=== PATIENT | male | born 1945 | race Caucasian/White ===

== ENCOUNTER 2019-02-17 09:36 | Day surgery (SDC) | payer MEDICARE, BC ==
[2019-02-17] MEDS ORDERED: Propofol 200 MG/20 ML SDV ONE ×3 (09:38→11:25)
[2019-02-17] MEDS ORDERED: Lactated Ringers 1,000 ML IV SCH (09:45)
[2019-02-17] MEDS ORDERED: Sodium Chloride 0.9% 10 ML Syringe FLUSH PRN (09:45)
--- NOTE | 2019-02-17 10:31 | PCM.PN ---
- General Info Date of Service: 02/17/19 - Review of Systems Systems Review Comment:: 73-year-old male here for colonoscopy. He has a history of colon polyps and is here for surveillance colonoscopy. His last colonoscopy was 3 years ago. He is medically stable to proceed today. There is been no significant recent change in his bowel pattern. His recent history and physical is reviewed and no significant changes are noted. I discussed the proposed colonoscopy with the patient. Risks such as but not limited to bleeding and GI injury reviewed. He agrees to proceed. - Patient Data Vitals - Most Recent: Last Vital Signs Temp 98.2 F 02/17/19 09:56 Pulse 67 02/17/19 09:56 Resp 16 02/17/19 09:56 BP 131/81 02/17/19 09:56 Pulse Ox 98 02/17/19 09:56 Weight - Most Recent: 120.202 kg Med Orders - Current: Current Medications Lactated Ringer's (Ringers, Lactated) 1,000 mls @ 125 mls/hr IV ASDIRECTED ISATU Last Admin: 02/17/19 09:54 Dose: 125 mls/hr Sodium Chloride (Saline Flush) 10 ml FLUSH ASDIRECTED PRN PRN Reason: Keep Vein Open Discontinued Medications Propofol (Diprivan 20 Ml) Confirm Administered Dose 400 mg .ROUTE .STK-MED ONE Stop: 02/17/19 09:39 - Problem List Review Problem List Initiated/Reviewed/Updated: Yes - My Orders Last 24 Hours: My Active Orders 02/17/19 09:45 Patient Status [ADT] Routine Peripheral IV Care [RC] . DIRECTED Verify Patient Consent Obtain [RC] ASDIRECTED Lactated Ringers [Ringers, Lactated] 1,000 ml IV ASDIRECTED Sodium Chloride 0.9% [Saline Flush] 10 ml FLUSH ASDIRECTED PRN Peripheral IV Insertion Adult [OM.PC] Routine - Assessment Assessment:: history of colon polyps - Plan Plan:: colonoscopy
--- NOTE | 2019-02-17 11:24 | PCM.OPNOTE ---
- General Post-Op/Procedure Note Date of Surgery/Procedure: 02/17/19 Operative Procedure(s): Colonoscopy with Polypectomy Findings: Multiple colon polyps Pre Op Diagnosis: history of colon polyps Post-Op Diagnosis: Colon Polyps Anesthesia Technique: MAC Primary Surgeon: Darion Levi Pathology: Colon Polyps Output, Urine Amount: 0 EBL in mLs: 0 Complications: None Condition: Good
--- NOTE | 2019-02-17 15:12 | OR ---
Date of Procedure: 02/17/2019 PREOPERATIVE DIAGNOSIS: History of colon polyps. POSTOPERATIVE DIAGNOSIS: Multiple colon polyps and hemorrhoids. OPERATIONS PERFORMED: Colonoscopy with polypectomy. INDICATIONS FOR SURGERY: This 73-year-old male has a known history of colon polyps and comes today for surveillance colonoscopy. FINDINGS: Multiple polyps were seen on today's exam. These range in size from 5 mm to 12 mm. They are all sessile in configuration. They are located in the splenic flexure, in the distal transverse colon, the proximal transverse colon, the hepatic flexure, and the ascending colon. The patient also has moderate degree of external hemorrhoids. PROCEDURE IN DETAIL: The patient was taken to the operating room. He was given intravenous sedation and with him in the left lateral decubitus position, digital rectal exam was performed showing no rectal masses. The Olympus colonoscope was inserted into the rectum. Retroflexed examination of the rectal canal was performed. The scope was then carefully advanced under direct visualization through the entire length of the colon until the cecum was reached. The cecum was able to be safely accessed and its identity is confirmed by viewing the normal internal cecal anatomy including the appendiceal orifice and ileocecal valve. The scope was then slowly withdrawn sequentially re- examining the colonic segments until the entire colon and rectum had been fully examined. During insertion and withdrawal of the scope, the above-described polyps were identified. As they are identified, they are in turn removed with cautery snare and are each retrieved. The polypectomy sites appeared to be clean after the procedure was completed. No sign of bleeding or any other complication was noted. The scope was removed, and the patient was taken from the operating room in satisfactory condition. ESTIMATED BLOOD LOSS: 0. COMPLICATIONS: None. PROGNOSIS: Good. GIOVANA Levi MD /[id number]
== END 2019-02-17 12:00 | disposition home or self-care (01) ==
LOC: LL.SDS 09:36
PROVIDERS: ATTEND Surgery
DX: Z12.11 Encounter for screening for malignant neoplasm of colon (principal); D12.2 Benign neoplasm of ascending colon; D12.3 Benign neoplasm of transverse colon; K64.4 Residual hemorrhoidal skin tags; J44.9 Chronic obstructive pulmonary disease, unspecified; I45.10 Unspecified right bundle-branch block; I10 Essential (primary) hypertension; I77.819 Aortic ectasia, unspecified site; E78.5 Hyperlipidemia, unspecified; K21.9 Gastro-esophageal reflux disease without esophagitis; F41.9 Anxiety disorder, unspecified; N40.1 Benign prostatic hyperplasia with lower urinary tract symptoms; R35.1 Nocturia; R73.03 Prediabetes; Z87.891 Personal history of nicotine dependence; Z86.010 Personal history of colon polyps; Z80.0 Family history of malignant neoplasm of digestive organs; Z79.82 Long term (current) use of aspirin; Z79.899 Other long term (current) drug therapy
CPT/HCPCS: 45385; J2704; J7120; 00811; 88305

== ENCOUNTER 2022-07-10 11:05 | Day surgery (SDC) | payer MEDICARE, OTHER ==
[~2022-07-10 11:05] MED LIST: Midazolam 1 MG/ML 2 ML SDV ONE; Propofol 200 MG/20 ML SDV ONE
[2022-07-10] MEDS ORDERED: Sodium Chloride 0.9% 10 ML Syringe FLUSH PRN (12:00)
[2022-07-10] MEDS ORDERED: Lactated Ringers 1,000 ML IV SCH (12:00)
== END 2022-07-10 13:26 | disposition home or self-care (01) ==
LOC: LL.SDS 11:05
PROVIDERS: ATTEND Surgery
DX: Z12.11 Encounter for screening for malignant neoplasm of colon (principal); K57.30 Diverticulosis of large intestine without perforation or abscess without bleeding; J44.9 Chronic obstructive pulmonary disease, unspecified; K21.9 Gastro-esophageal reflux disease without esophagitis; I10 Essential (primary) hypertension; E78.00 Pure hypercholesterolemia, unspecified; M19.90 Unspecified osteoarthritis, unspecified site; N40.0 Benign prostatic hyperplasia without lower urinary tract symptoms; Z86.010 Personal history of colon polyps; Z79.899 Other long term (current) drug therapy; Z79.82 Long term (current) use of aspirin; Z98.890 Other specified postprocedural states; Z79.84 Long term (current) use of oral hypoglycemic drugs
CPT/HCPCS: 82947; J2250; J2704; J7120

== ENCOUNTER 2024-08-18 14:06 | Emergency (ER) | payer MEDICARE ==
[2024-08-18 14:27] LABS: BASOPHILS ABSOLUTE AUTO 0.04 K/uL (0.00-0.20); BASOPHILS PERCENT AUTO 0.6 % (0.0-2.0); EOSINOPHILS ABSOLUTE AUTO 0.16 K/uL (0.00-0.50); EOSINOPHILS PERCENT AUTO 2.5 % (0.0-5.0); HEMATOCRIT 41.7 % (39.0-49.0); HEMOGLOBIN 14.2 g/dL (13.1-16.8); IMMATURE GRAN ABSOLUTE AUTO 0.01 10^3/uL (0.00-0.04); IMMATURE GRAN PERCENT AUTO 0.2 % (0.0-0.4); LYMPHOCYTES ABSOLUTE AUTO 1.66 K/uL (0.50-3.50); LYMPHOCYTES PERCENT AUTO 25.5 % (10.0-50.0); MEAN CORPUSCULAR HEMOGLOBIN 31.6 pg (28.2-33.3); MEAN CORPUSCULAR HGB CONC 34.1 g/dL (31.7-36.0); MEAN CORPUSCULAR VOLUME 92.9 fL (84.0-98.0); MONOCYTES ABSOLUTE AUTO 0.55 K/uL (0.00-1.00); MONOCYTES PERCENT AUTO 8.5 % (2.0-14.0); NEUTROPHILS ABSOLUTE AUTO 4.08 K/uL (1.40-7.00); NEUTROPHILS PERCENT AUTO 62.7 % (45.0-80.0); PLATELET COUNT,PLT 217 K/uL (150-350); RED BLOOD CELL COUNT 4.49 M/uL (4.33-5.41); RED CELL DISTRIBUTION WIDTH 12.3 % (11.2-14.1); WHITE BLOOD CELL COUNT,WBC 6.5 K/uL (4.0-10.2)
[2024-08-18 14:45] LABS: ALANINE AMINOTRANSFERASE,ALT 58 U/L (12-78); ALBUMIN 3.9 g/dL (3.4-5.0); ALKALINE PHOSPHATASE 130 IU/L (46-116); AMYLASE 29 U/L (25-115); ANION GAP 11.5 meq/L (7-15); ASPARTATE AMNIOTRANSFERASE,AST 30 U/L (15-37); BILIRUBIN TOTAL 0.3 mg/dL (0.2-1.0); BLOOD UREA NITROGEN,BUN 15 mg/dL (7-18); CALCIUM 9.1 mg/dL (8.5-10.1); CARBON DIOXIDE,CO2 24.5 mmol/L (21.0-32.0); CHLORIDE,CL 103 mmol/L (98-107); CREATININE 1.03 mg/dL (0.51-1.17); GLUCOSE RANDOM 206 mg/dL (70-99); LIPASE 40 U/L (16-77); MAGNESIUM 1.8 mg/dL (1.8-2.4); POTASSIUM,K 4.3 mmol/L (3.5-5.1); PROTEIN TOTAL,TP 7.1 g/dL (6.4-8.2); SODIUM,NA 139 mmol/L (136-145)
[2024-08-18 14:48] LABS: ESTIMATED GFR 73 mL/min (>=60); INR 0.9 (0.9-1.1); PROTHROMBIN TIME 9.4 SEC (9.0-11.1)
[2024-08-18 14:49] LABS: ETHANOL BLOOD MEDICAL < 0.000 g/dL (0.000-0.080)
[2024-08-18] MEDS: Bacitracin/Neomycin/Polymyxin B Oint 0.9 GM U/D Packet TOP ONE (15:51)
== END 2024-08-18 16:15 | disposition home or self-care (01) ==
LOC: LL.ED 14:06
DX: S20.212A Contusion of left front wall of thorax, initial encounter (principal); S00.03XA Contusion of scalp, initial encounter; S80.212A Abrasion, left knee, initial encounter; S50.312A Abrasion of left elbow, initial encounter; J44.9 Chronic obstructive pulmonary disease, unspecified; M19.90 Unspecified osteoarthritis, unspecified site; E66.9 Obesity, unspecified; Z79.82 Long term (current) use of aspirin; Z79.84 Long term (current) use of oral hypoglycemic drugs; Z79.899 Other long term (current) drug therapy; W10.8XXA Fall (on) (from) other stairs and steps, initial encounter
CPT/HCPCS: 36415; 70450; 71250; 72125; 80053; 80307; 82150; 83605; 83690; 83735; 84484; 85025; 85610; 93005; 99284

== ENCOUNTER 2025-04-23 20:14 | Emergency (ER) | payer MEDICARE ==
[2025-04-23] MEDS ORDERED: Sodium Chloride 0.9% 10 ML Syringe FLUSH PRN (20:27)
[2025-04-23 20:40] LABS: BASOPHILS ABSOLUTE AUTO 0.05 K/uL (0.00-0.20); BASOPHILS PERCENT AUTO 0.5 % (0.0-2.0); EOSINOPHILS ABSOLUTE AUTO 0.10 K/uL (0.00-0.50); EOSINOPHILS PERCENT AUTO 1.0 % (0.0-5.0); IMMATURE GRAN ABSOLUTE AUTO 0.00 10^3/uL (0.00-0.04); IMMATURE GRAN PERCENT AUTO 0.0 % (0.0-0.4); LYMPHOCYTES ABSOLUTE AUTO 1.43 K/uL (0.50-3.50); LYMPHOCYTES PERCENT AUTO 14.8 % (10.0-50.0); MONOCYTES ABSOLUTE AUTO 1.06 K/uL (0.00-1.00); MONOCYTES PERCENT AUTO 11.0 % (2.0-14.0); NEUTROPHILS ABSOLUTE AUTO 7.03 K/uL (1.40-7.00); NEUTROPHILS PERCENT AUTO 72.7 % (45.0-80.0); PLATELET COUNT,PLT 213 K/uL (150-350); RED BLOOD CELL COUNT 4.47 M/uL (4.33-5.41); RED CELL DISTRIBUTION WIDTH 12.7 % (11.2-14.1); WHITE BLOOD CELL COUNT,WBC 9.7 K/uL (4.0-10.2)
[2025-04-23 21:10] LABS: ALANINE AMINOTRANSFERASE,ALT 41 U/L (12-78); ASPARTATE AMNIOTRANSFERASE,AST 20 U/L (15-37); BILIRUBIN TOTAL 0.4 mg/dL (0.2-1.0); BLOOD UREA NITROGEN,BUN 15 mg/dL (7-18); CARBON DIOXIDE,CO2 26.1 mmol/L (21.0-32.0); CHLORIDE,CL 103 mmol/L (98-107); CREATININE 1.11 mg/dL (0.51-1.17); ESTIMATED GFR 67 mL/min (>=60); GLUCOSE RANDOM 137 mg/dL (70-99); POTASSIUM,K 4.4 mmol/L (3.5-5.1); PRO B-TYPE NATRIUR PEPT,BNPPRO 144 pg/mL (0-125); PROTEIN TOTAL,TP 7.5 g/dL (6.4-8.2); SODIUM,NA 140 mmol/L (136-145)
[2025-04-23 21:41] LABS: APPEARANCE,URINE CLEAR; GLUCOSE,URINE NEGATIVE (NEGATIVE); OCCULT BLOOD,URINE NEGATIVE (NEGATIVE)
[2025-04-23] MEDS: Iopamidol 755 Mg/ML 100 ML Bottle IVPUSH STA (21:57)
[2025-04-23] MEDS: Take Home: traMADol 50 MG, 4 Tab Pack PO ONE (22:22)
== END 2025-04-23 22:38 | disposition home or self-care (01) ==
LOC: LL.ED 20:14
DX: R07.9 Chest pain, unspecified (principal); R63.8 Other symptoms and signs concerning food and fluid intake; J44.9 Chronic obstructive pulmonary disease, unspecified; E66.9 Obesity, unspecified; Z79.82 Long term (current) use of aspirin
CPT/HCPCS: 36415; 71045; 71275; 80053; 81003; 83605; 83735; 83880; 84484; 85025; 85379; 87428-QW; 93005; 99285; A9270-GY; Q9967